=== PATIENT | male | born 1945 | race Caucasian/White ===

== ENCOUNTER → 2018-10-15 14:56 | Outpatient (CLI) | payer OTHER, SELFPAY ==
--- NOTE | 2018-10-15 14:58 | DI.US.S_ITS ---
PROCEDURE: US PERIPH VENOUS LOW EXTREM LT INDICATIONS: CALF EDEMA TECHNIQUE: Real-time imaging, as well as color and pulse Doppler interrogation, were performed of the lower extremity deep veins from the inguinal ligament to the popliteal fossa. COMPARISON: None. FINDINGS: The common femoral, femoral and popliteal veins are normally compressible, and free of intraluminal thrombus. Color and pulse Doppler demonstrate normal phasic intraluminal flow. There is normal augmentation response to distal compression maneuver. IMPRESSION: No deep venous thrombosis identified within the left lower extremity. Dictated by: Jay TRACY Interpreted: Tyra Tsai MD on 10/15/2018 at 16:04 Approved by: Tyra Tsai M.D. on 10/15/2018 at 16:47
== END ==
PROVIDERS: PCP Family Medicine; Visit Provider Family Medicine
DX: R60.0 Localized edema (principal)
CPT/HCPCS: 93971

== ENCOUNTER → 2019-01-01 12:41 | Outpatient (CLI) | payer OTHER, SELFPAY ==
--- NOTE | 2019-01-01 | DI.RAD.S_ITS ---
PROCEDURE: XR ANKLE LT MIN 3V INDICATIONS: left ankle pain TECHNIQUE: 3 views of the ankle were acquired. COMPARISON: None. FINDINGS: Bones: No fractures or dislocations. Ankle mortise is normally aligned. No suspicious bony lesions. There is a large plantar fascial insertion spur and also a moderate-sized Achilles tendon insertion spur at the posterior calcaneus Soft tissues: No tibiotalar joint effusion. Achilles tendon appears normal. IMPRESSION: No trauma found. Unusually large plantar fascia insertion spur and moderate size Achilles tendon spurring at the posterior calcaneus. Dictated by: Gordo Gambino M.D. on 01/01/2019 at 14:30 Approved by: Gordo Gambino M.D. on 01/01/2019 at 14:31
== END ==
PROVIDERS: PCP Family Medicine; Visit Provider Podiatrist
DX: M25.572 Pain in left ankle and joints of left foot (principal); M77.32 Calcaneal spur, left foot
CPT/HCPCS: 73610

== ENCOUNTER → 2019-01-10 17:15 | Outpatient (CLI) | payer OTHER, SELFPAY ==
--- NOTE | 2019-01-10 17:19 | DI.MRI.S_ITS ---
PROCEDURE: MR ANKLE LT WO CON INDICATIONS: STRAIN OF LEFT ACHILLES TENDON,INITIAL ENCOUNTER TECHNIQUE: Noncontrast sagittal T1 spin echo and T2 fast spin echo with fat saturation, axial proton density fast spin echo and T2 fast spin echo with fat saturation, coronal T1 spin echo and T2 fast spin echo with fat saturation through the ankle/hindfoot. COMPARISON: [facility], CR, XR ANKLE LT MIN 3V, 01/01/2019, 12:50. FINDINGS: Image quality: Diagnostic. Bones and joints: Prominent marrow edema is identified involving the plantar cuboid, lateral cuneiform, now cuneiform, and medial cuneiforms. There is also moderate adjacent marrow edema involving the 1st through 4th metatarsals. A nondisplaced stress fracture is evident involving the base of the 4th metatarsal. No displaced fractures or dislocations are identified. No suspicious osseous lesions are present. Plantar and Achilles spurs are present. The ankle mortise is well-maintained. There are no osteochondral defects appreciated involving the tibial plafond through the talar dome. However, there is prominent thinning of the hyaline articular cartilage within this joint. There may be a small ankle effusion. Medial structures: The deltoid and spring ligaments are intact. Slight heterogeneity involving these ligaments may be related to chronic sprains. The tibialis posterior tendon demonstrates minimal increased signal at the level of the navicular without significant change. The flexor hallucis longus and flexor digitorum longus tendons are intact and otherwise unremarkable. The posterior tibial nerve through the region of the tarsal tunnel is within normal limits. Lateral structures: The anterior and posterior distal tibiofibular ligaments are moderately thickened, but intact. A similar appearance is noted involving the anterior talar fibular ligament. The calcaneofibular ligament and the posterior talofibular ligament are intact. No full thickness lateral ankle ligament tears are appreciated. There is moderate thickening and increased signal involving the peroneus longus and peroneus brevis tendons with corresponding increased signal and irregularity. Moderate grade partial-thickness tearing involving the peroneus brevis tendon along the posterior margin of the lateral malleolus is present. Fluid is contained within their corresponding tendon sheaths. Fluid is contained within the sinus tarsi. Anterior structures: The tibialis anterior, extensor hallucis longus, and extensor digitorum longus tendons appear intact. Posterior and plantar structures: There is an irregular interstitial/delaminating high-grade partial-thickness tear of the Achilles tendon with corresponding severe tendinopathy. The medial band of the plantar fascia is thickened and mildly edematous. There may be postoperative change is present. Other: Extensive soft tissue edema about the midfoot and hindfoot is present, including the intrinsic muscles of the midfoot. IMPRESSION: 1. High grade interstitial/delaminating partial-thickness tearing of the Achilles tendon with corresponding severe tendinopathy. 2. Moderate peroneus brevis and peroneus longus tendinopathy. There is partial-thickness tearing of the peroneus brevis tendon. 3. Mild distal tibialis posterior tendinopathy. 4. Scarring of the lateral ankle ligaments. No complete tears. 5. Plantar fascial thickening. Please correlate clinically to exclude plantar fasciitis. 6. Stress fracture involving the base of the 4th metatarsal. Additional areas of marrow edema involving the midfoot bones may represent stress reaction, degenerative change, or bone contusion. There are no displaced fractures. 7. Extensive soft tissue edema about the midfoot and hindfoot. Dictated by: Camilo Driscoll M.D. on 01/13/2019 at 14:06 Approved by: Camilo Driscoll M.D. on 01/13/2019 at 14:14
== END ==
PROVIDERS: PCP Family Medicine; Visit Provider Podiatrist
DX: S86.012A Strain of left Achilles tendon, initial encounter (principal); M84.375A Stress fracture, left foot, initial encounter for fracture
CPT/HCPCS: 73721

== ENCOUNTER → 2019-11-22 15:03 | Outpatient (CLI) | payer MEDICARE, SELFPAY ==
[2019-11-23 08:15] LABS: COVID19 Sendout Not Detected (Not Detect)
== END ==
PROVIDERS: PCP Family Medicine; Visit Provider Nurse Practitioner
DX: Z01.812 Encounter for preprocedural laboratory examination (principal)
CPT/HCPCS: 87635

== ENCOUNTER 2019-11-25 07:28 | Day surgery (SDC) | payer MEDICARE, SELFPAY ==
[2019-11-25] MEDS: PROPARACAINE 0.5% OPHTH SOL 2 DROPS EYE-OP (08:05)
[2019-11-25 08:07] VITALS: BP 129/73; PULSE 70; RESP 17; TEMP 36.2; O2SAT 99; BMI 30.9
[2019-11-25] MEDS: CATARACT EYE COMPOUND (10 DROPS/SYRINGE) 3 DROPS EYE-OP (08:10)
--- NOTE | 2019-11-25 09:06 | PM.PREOP ---
Pre-operative Note Interval Note History & Physical reviewed/Exam performed by Physician: Yes Changes to H&P: No
--- NOTE | 2019-11-25 09:06 | PM.OP.1 ---
Operative Date/Time/Diagnoses Pre-op diagnosis: Nuclear Cataract Left eye Post-op diagnosis: same Procedure & Clinicians Same procedure as scheduled: Yes Surgeon: Jhonny Márquez Anesthesia Type: MAC +/- and Sedation Operative Notes Procedure in detail: Patient brought to the operating suite. Tetracaine drops placed in the left eye. Patient was prepped and draped in sterile manner. Wire lid speculum was placed in the eye. Betadine drops were placed on the eye. This was irrigated. Lidocaine jelly was placed on the eye. A paracentesis port was created with a side-port blade. 0.1 mL 1% preservative free lidocaine was injected into the anterior chamber. The anterior chamber was deepened with viscoelastic. 2.6 mm keratome was used to create a temporal clear corneal incision. Cystotome and Utrata forceps were used to create continuous tear capsulorrhexis. Balanced salt solution was used to hydro dissect the nucleus. The phacoemulsification handpiece was inserted and the nucleus was removed using the stop and chop technique. The lens was very dense. The irrigation aspiration handpiece was inserted and the remaining cortex was removed. Anterior chamber was deepened with viscoelastic. An Contreras ZCB00 intraocular lens with a power of 22.0 was injected into the capsular bag. Irrigation aspiration handpiece was inserted and the remaining viscoelastic was removed. Incision was hydrated with balanced salt solution and found to be leak free with pressure with Weck-Vivian sponges. 0.1 mL Vigamox injected anterior chamber. 0.3 mL Kenalog 10 mg was injected subconjunctivally. Lid speculum was removed. The patient left the operating room in excellent condition. Complications: none Post-operative Condition: stable Disposition: same day surgery
[2019-11-25] MEDS: TRIAMCINOLONE 50 MG/5 ML VIAL INJ (09:28)
[2019-11-25] MEDS: PHENYLEPHRINE/LIDOCAINE VIAL (OR) 0.2 ML EYE-OP (09:28)
[2019-11-25] MEDS: MOXIFLOXACIN INJ 5 MG/ML VIAL EYE-OP (09:28)
[2019-11-25] MEDS: BALANCED SALT IRRIG SOLN NO.2 500 ML, EPINEPHrine 1 MG IRR (09:29)
[2019-11-25] MEDS: CHONDROIDTIN/SOD HYALURONATE 1.05 ML SYRINGE INTRAOCULA (09:29)
[2019-11-25] MEDS: TETRACAINE 0.5% OPHTH DROPS 4 ML 2 DROPS EYE-OP (09:29)
[2019-11-25] MEDS: LIDOCAINE JELLY 2% 5 ML 1 APPLIC TOP (09:29)
[2019-11-25 09:40] VITALS: BP 108/60; PULSE 68; RESP 15; TEMP 35.9; O2SAT 98
== END 2019-11-25 09:52 | disposition home or self-care (01) ==
PROVIDERS: PCP Family Medicine; Referring Provider Ophthalmology; Visit Provider Ophthalmology
PROC: (CPT 66984; principal; 2019-11-25 09:15)
DX: H25.12 Age-related nuclear cataract, left eye (principal); E11.9 Type 2 diabetes mellitus without complications; Z79.4 Long term (current) use of insulin
CPT/HCPCS: 66984; J0171; J2250; J3301

== ENCOUNTER → 2022-01-09 12:57 | Outpatient (CLI) | payer MEDICARE, SELFPAY | PROVIDERS: Family Provider Family Medicine; PCP Family Medicine; Referring Provider Podiatrist; Visit Provider Family Medicine | DX: E11.621 Type 2 diabetes mellitus with foot ulcer (principal); L97.514 Non-pressure chronic ulcer of other part of right foot with necrosis of bone; M86.171 Other acute osteomyelitis, right ankle and foot; E11.40 Type 2 diabetes mellitus with diabetic neuropathy, unspecified; Z79.2 Long term (current) use of antibiotics; L08.9 Local infection of the skin and subcutaneous tissue, unspecified | CPT/HCPCS: 11044; 36415; 80053; 83036; 85025; 85651; 86140; 87070; 87075; 87077; 87186; 87205; 93922; 99204; 99213 ==

== ENCOUNTER → 2022-01-09 15:07 | Outpatient (CLI) | payer MEDICARE, SELFPAY ==
[2022-01-09 16:04] LABS: Add Manual Diff / Slide Review NO; Basophils Absolute Auto 100 /uL (0-100); Basophils Percent Auto 0.7 % (0-2); Eosinophils Absolute Auto 100 /uL (0-450); Hematocrit 39.9 % (41-53); Hemoglobin 13.7 g/dL (13.5-17.5); Lymphocytes Absolute Auto 1800 /uL (1100-4500); Lymphocytes Percent Auto 26.2 % (25-40); Mean Corpuscular HGB Conc 34.3 % (30-36); Mean Corpuscular Volume 84.6 fL (80-100); Monocytes Absolute Auto 500 /uL (0-900); Monocytes Percent Auto 7.4 % (3-14); Neutrophils Absolute Auto 4500 /uL (1500-7000); Neutrophils Percent Auto 63.7 % (50-75); Platelet Count 420 X10^3/uL (150-400); Red Blood Cell Count 4.71 X10^6/uL (4.5-5.9); Red Cell Distribution Width 14.2 % (11.6-14.8)
[2022-01-09 16:29] LABS: Alanine Aminotransferase 31 IU/L (<50); Albumin 4.1 g/dL (3.5-5.0); Albumin Globulin Ratio 1.2 (1.0-2.8); Alkaline Phosphatase 67 U/L (38-126); Aspartate Aminotransferase 41 IU/L (17-59); BUN Creatinine Ratio 24.1 (6-22); Bilirubin Total 0.7 mg/dL (0.2-1.3); Blood Urea Nitrogen 20 mg/dL (9-20); C-Reactive Protein Quant < 0.5 mg/dL (<1.0); Calcium 9.4 mg/dL (8.4-10.2); Carbon Dioxide 25 mmol/L (22-32); Chloride 103 mmol/L (98-107); Estimated Glomerular Filt Rate > 60 mL/min (>60); Globulin 3.3 g/dL (1.7-4.1); Glucose 111 mg/dL (80-110); HEMOLYSIS < 15 (0-50); Potassium 4.8 mmol/L (3.4-5.1); Sodium 137 mmol/L (137-145); Total Protein 7.4 g/dL (6.3-8.2)
[2022-01-09 16:39] LABS: Erythrocyte Sedimentation Rate 13 MM/HR (0-15)
[2022-01-09 17:12] LABS: Hemoglobin A1C% w Est Avg Glu 9.2 % (4.0-6.0)
== END ==
PROVIDERS: Family Provider Family Medicine; PCP Internal Medicine; Referring Provider Family Medicine; Visit Provider Family Medicine
DX: E11.9 Type 2 diabetes mellitus without complications (principal); L08.9 Local infection of the skin and subcutaneous tissue, unspecified
CPT/HCPCS: 36415; 80053; 83036; 85025; 85651; 86140

== ENCOUNTER → 2022-01-10 15:27 | Outpatient (CLI) | payer MEDICARE, SELFPAY | PROVIDERS: Family Provider Family Medicine; PCP Internal Medicine; Referring Provider Podiatrist; Visit Provider Family Medicine | DX: E11.621 Type 2 diabetes mellitus with foot ulcer (principal); L97.514 Non-pressure chronic ulcer of other part of right foot with necrosis of bone; R60.0 Localized edema; L53.9 Erythematous condition, unspecified | CPT/HCPCS: 99213 ==

== ENCOUNTER → 2022-01-16 13:54 | Outpatient (CLI) | payer MEDICARE, SELFPAY | PROVIDERS: Family Provider Family Medicine; PCP Internal Medicine; Referring Provider Internal Medicine; Visit Provider Family Medicine | DX: E11.621 Type 2 diabetes mellitus with foot ulcer (principal); L97.514 Non-pressure chronic ulcer of other part of right foot with necrosis of bone; R60.0 Localized edema; L53.9 Erythematous condition, unspecified | CPT/HCPCS: 99212 ==

== ENCOUNTER → 2022-01-25 15:14 | Outpatient (CLI) | payer MEDICARE, SELFPAY | PROVIDERS: Family Provider Family Medicine; PCP Internal Medicine; Referring Provider Internal Medicine; Visit Provider Family Medicine | DX: L08.9 Local infection of the skin and subcutaneous tissue, unspecified (principal); E11.621 Type 2 diabetes mellitus with foot ulcer; L97.516 Non-pressure chronic ulcer of other part of right foot with bone involvement without evidence of necrosis; L97.522 Non-pressure chronic ulcer of other part of left foot with fat layer exposed; M86.171 Other acute osteomyelitis, right ankle and foot; M86.172 Other acute osteomyelitis, left ankle and foot; E11.40 Type 2 diabetes mellitus with diabetic neuropathy, unspecified; R60.0 Localized edema; L53.9 Erythematous condition, unspecified; Z79.2 Long term (current) use of antibiotics | CPT/HCPCS: 11042; 36415; 80053; 85025; 85651; 86140; 99214 ==

== ENCOUNTER → 2022-01-25 16:11 | Outpatient (CLI) | payer MEDICARE, SELFPAY ==
[2022-01-25 17:40] LABS: Add Manual Diff / Slide Review NO; Basophils Absolute Auto 0 /uL (0-100); Basophils Percent Auto 0.4 % (0-2); Eosinophils Absolute Auto 200 /uL (0-450); Hematocrit 37.9 % (41-53); Hemoglobin 12.9 g/dL (13.5-17.5); Lymphocytes Absolute Auto 1400 /uL (1100-4500); Lymphocytes Percent Auto 17.6 % (25-40); Mean Corpuscular Hemoglobin 29.1 PG (26-34); Mean Corpuscular Volume 85.3 fL (80-100); Monocytes Absolute Auto 600 /uL (0-900); Monocytes Percent Auto 7.1 % (3-14); Neutrophils Absolute Auto 5900 /uL (1500-7000); Neutrophils Percent Auto 72.9 % (50-75); Platelet Count 284 X10^3/uL (150-400); Red Blood Cell Count 4.44 X10^6/uL (4.5-5.9); Red Cell Distribution Width 14.7 % (11.6-14.8); White Blood Cell Count 8.1 X10^3/uL (4.5-11.0)
[2022-01-25 18:04] LABS: Alanine Aminotransferase 24 IU/L (<50); Albumin Globulin Ratio 1.3 (1.0-2.8); Alkaline Phosphatase 58 U/L (38-126); Aspartate Aminotransferase 40 IU/L (17-59); BUN Creatinine Ratio 25.7 (6-22); Bilirubin Total 1.1 mg/dL (0.2-1.3); Blood Urea Nitrogen 18 mg/dL (9-20); C-Reactive Protein Quant < 0.5 mg/dL (<1.0); Calcium 9.2 mg/dL (8.4-10.2); Carbon Dioxide 25 mmol/L (22-32); Chloride 104 mmol/L (98-107); Estimated Glomerular Filt Rate > 60 mL/min (>60); Glucose 187 mg/dL (80-110); HEMOLYSIS < 15 (0-50); Potassium 4.3 mmol/L (3.4-5.1); Sodium 138 mmol/L (137-145)
[2022-01-25 20:24] LABS: Erythrocyte Sedimentation Rate 16 MM/HR (0-15)
== END ==
PROVIDERS: Family Provider Family Medicine; PCP Internal Medicine; Referring Provider Family Medicine; Visit Provider Family Medicine
DX: L08.9 Local infection of the skin and subcutaneous tissue, unspecified (principal); E11.621 Type 2 diabetes mellitus with foot ulcer
CPT/HCPCS: 36415; 80053; 85025; 85651; 86140

== ENCOUNTER → 2022-02-08 10:43 | Outpatient (CLI) | payer MEDICARE, SELFPAY | PROVIDERS: Family Provider Family Medicine; PCP Internal Medicine; Referring Provider Podiatrist; Visit Provider Family Medicine | DX: E11.621 Type 2 diabetes mellitus with foot ulcer (principal); L97.516 Non-pressure chronic ulcer of other part of right foot with bone involvement without evidence of necrosis; L97.522 Non-pressure chronic ulcer of other part of left foot with fat layer exposed; M86.672 Other chronic osteomyelitis, left ankle and foot; E11.40 Type 2 diabetes mellitus with diabetic neuropathy, unspecified; Z79.2 Long term (current) use of antibiotics | CPT/HCPCS: 11042; 99213; 99214 ==

== ENCOUNTER → 2022-03-02 13:03 | Outpatient (CLI) | payer MEDICARE, SELFPAY | PROVIDERS: Family Provider Family Medicine; PCP Internal Medicine; Referring Provider Internal Medicine; Visit Provider Family Medicine | DX: E11.621 Type 2 diabetes mellitus with foot ulcer (principal); L97.516 Non-pressure chronic ulcer of other part of right foot with bone involvement without evidence of necrosis; E11.40 Type 2 diabetes mellitus with diabetic neuropathy, unspecified | CPT/HCPCS: 11042 ==

== ENCOUNTER → 2022-03-23 12:53 | Outpatient (CLI) | payer MEDICARE, SELFPAY | PROVIDERS: Family Provider Family Medicine; PCP Internal Medicine; Referring Provider Podiatrist; Visit Provider Family Medicine | DX: E11.621 Type 2 diabetes mellitus with foot ulcer (principal); L97.512 Non-pressure chronic ulcer of other part of right foot with fat layer exposed; L08.9 Local infection of the skin and subcutaneous tissue, unspecified; E11.40 Type 2 diabetes mellitus with diabetic neuropathy, unspecified | CPT/HCPCS: 11042; 87070; 87075; 87077; 87147; 87186; 87205; 99213; 99214 ==

== ENCOUNTER → 2022-03-30 15:20 | Outpatient (CLI) | payer MEDICARE, SELFPAY | PROVIDERS: Family Provider Family Medicine; PCP Internal Medicine; Referring Provider Internal Medicine; Visit Provider Surgery | DX: Z86.31 Personal history of diabetic foot ulcer (principal); E11.40 Type 2 diabetes mellitus with diabetic neuropathy, unspecified | CPT/HCPCS: 99213 ==

== ENCOUNTER → 2022-08-31 14:37 | Outpatient (CLI) | payer MEDICARE, SELFPAY ==
--- NOTE | 2022-08-31 | OV.WND_ITS ---
Progress Note Details Patient Name: Jhonny Riggs Patient Number: [id number] Clinician: Cynthia Sol RN Patient Date of : 1945 Physician / Warp Knit Operator: Raman Fountain Patient SUBJECTIVE Chief Complaint This information was obtained from the patient I pulled off my right second toenail on 08/14/22. Allergies No Known Allergies HPI This information was obtained from the patient The following HPI elements were documented for the patient's wound: Location: R 2nd toe Duration: 08/14/22 Context: DFU Associated Signs and Symptoms: none The patient is a 76-year-old male with poorly controlled Type 2 diabetes who was referred by Dr. Cornell for readmission to the wound center for evaluation and treatment of a diabetic ulcer of the right 2nd toe. The patient reports that he pulled his toenail off about 2 weeks ago and was left with an open wound. He subsequently developed redness and swelling of the right 2nd toe. He has been treated over 1 week with Bactrim DS 1 p.o. b.i.d. and reports only slight improvement. He denies having any pain or discomfort nor has he had any fever or chills. The patient reports a good appetite. He is not routine only measuring his blood sugars. The patient reports that his last hemoglobin A1c was 11.1. He does not use diabetic footwear and has been ambulating with sandals. Past history is remarkable for diabetic ulcers involving the left 3rd toe and right hallux. ABIs done today were 0.93 on the left, 1.08 on the right. 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 Medical History This information was obtained from the patient Patient has a medical history of: Diabetes Poliomyelitis (left side) Hypertension Surgical History This information was obtained from the patient, chart Patient has a surgical history of: knee replacement Arthroscopy Shoulder R side Review of Systems (ROS) This information was obtained from the patient Complaints and Symptoms Patient complains of: Co-Morbid Conditions: Diabetes Prior Wound History: Drainage Patient denies complaints or symptoms related to: Cardiovascular (Central): Chest Pain, Dyspnea on Exertion Constitutional Symptoms (General Health): Chills, Fever, Loss of Appetite Prior Wound History: Bleeding, Erythema, Malodor, Pain Respiratory: Cough, Shortness of Breath, Wheezing General Notes: Managed by PCP, patient believes he is up to date. Additional Information Does patient have a history of Cancer? Yes? Complete all questions.: No Medications Bactrim DS - oral 800 mg-160 mg 1 tablet twice daily for 10 days for toe infection rx'd by PCP metformin - oral 500 mg 3/2 tablet twice daily CoQ-10 - oral 30 mg 1 capsule once daily Adult Low Dose Aspirin - oral 81 mg 1 tablet,delayed release (DR/EC) once daily Lantus Solostar U-100 Insulin - subcutaneous 100 unit/mL (3 mL) 40 insulin pen levofloxacin - oral 750 mg tablet once daily OBJECTIVE Wound Assessment(s) Wound #3 Right Toe - Second is an acute Shrestha Grade 2 Diabetic Ulcer and has received a status of Not Healed. Initial wound encounter measurements are 0.2cm length x 0.3cm width x 0.5cm depth, with an area of 0.06 sq cm and a volume of 0.03 cubic cm. Bone and adipose are exposed. No tunneling has been noted. No sinus tract has been noted. No undermining has been noted. There is a moderate amount of serosanguineous drainage noted which has no odor. The patient reports a wound pain of level 0/10. The wound margin is attached. Wound bed has No epithelialization, No eschar, Yes slough, No granulation. The periwound skin exhibited: Edema, Moist, Maceration, Erythema. The temperature of the periwound skin is Warm. Local Pulse is Palpable. Vitals Height/Length: 73 in (185.42 cm), Weight: 230.3 lbs (104.68 kgs), BMI: 30.4, Temperature: 97.5 ?F (36.39 ?C), Pulse: 68 bpm, Respiratory Rate: 16 breaths/min, Blood Pressure: 157/75 mmHg, Capillary Blood Glucose: 65 mg/dl, Pulse Oximetry: 97 %. Vital Signs Notes: Ensure given to patient in clinic. Rechecked glucose 20 minutes later: 74. Patient to eat lunch when he leaves here. Physical Exam Constitutional Vital signs reviewed and noted. Eyes: Conjunctiva without icterus. Ears, Nose, Mouth, and Throat: External inspection of ears and nose appear normal. Respiratory: Even respirations without use of accessory muscles. No intercoastal retractions noted. Even and non labored respiration. Integumentary (Hair, Skin) See wound assessment. Neurological: decreased lower extremity sensation. Psychiatric: Orientation to time, place and person: Normal affect with normal thought pattern. Lower Extremity Assessment Vascular Assessment: Left Extremity Pulses: Dorsalis Pedis: Palpable Right Extremity Pulses: Dorsalis Pedis: Palpable Left Extremity colors, hair growth, and conditions: Extremity Color: WNL Hair Growth on Extremity: No Temperature of Extremity: Warm Capillary Refill: < 3 seconds Erythema: No Dependent Rubor: No Hyperpigmentation: No Lipodermatosclerosis: No Right Extremity colors, hair growth, and conditions: Extremity Color: WNL Hair Growth on Extremity: No Temperature of Extremity: Warm Capillary Refill: < 3 seconds Erythema: Yes Dependent Rubor: No Hyperpigmentation: No Lipodermatosclerosis: No Additional Information The patient's potential to heal is: fair. 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 without evidence of necrosis (Encounter Diagnosis) E11.40 - Type 2 diabetes mellitus with diabetic neuropathy, unspecified General Notes: diabetic ulcer dorsum distal right 2nd toe extending down to the distal phalanx with active infection the following factors have been identified that may affect wound healing: Devitalized tissue Bioburden Infection Diabetes Neuropathy Goals: remove devitalized tissue Remove and prevent biofilm Treat infection Pressure offloading Manage comorbidities Plan: debridement, start dressing changes with Iodosorb, diabetic footwear, cultures obtained today, x-rays right foot ordered, laboratory evaluation CBC, complete metabolic panel, ESR, sed rate. Start Levaquin 750 mg p.o. q.day. PROCEDURES Wound #3 Wound #3 (Diabetic Ulcer) is located on the right toe - second. A skin/subcutaneous tissue level surgical debridement with a total area debrided of 0.09 sq cm was performed by Raman Fountain MD. Subcutaneous was removed along with devitalized tissue: biofilm, exudate, and slough. The following instrument(s) were used: curette. No anesthetic was required due to loss of sensation. A time out was conducted prior to the start of the procedure. A minimal amount of bleeding was controlled with pressure. The procedure was tolerated well with a loss of sensation throughout and a loss of sensation following the procedure. Post Debridement Measurements: 0.3cm length x 0.3cm width x 0.5cm depth; with an area of 0.09 sq cm and a volume of 0.045 cubic cm; Wound #3 (Diabetic Ulcer) is located on the right toe - second. A Non-Invasive Vascular Testing procedure was performed by Raman Fountain MD. General Notes: RONALD performed in clinic. RLE: 1.08, LLE 0.93. Additional Information Muscle fascia or bone removed and sent to pathology?: No PLAN Wound Orders: Wound #3 Right Toe - Second Hygiene May shower with wound protected, using a cast protector or plastic bag and tape Cleanser Cleanse Wound with normal saline Topical Treatments Antibiotic/Antimicrobial Ointment/Cream - Iodosorb paste filling wound. Dressings Cover and secure with - Telfa pad secured with tape. Change Dressing - Every other day. Off-Loading Keep weight off Use/Wear when walking - Sandal to avoid pressure against top of toe. Physician Review: Reviewed and evaluated labs. Discussed the Plan of Care @ bedside with - The patient Reviewed hospital records. I, as the physician, have reviewed the orders scribed by the center RN's and agree. Additional Orders: Other Instructions: - Please coal picker and start taking the new antibiotic prescription for levofloxacin. Stop taking the Bactrim DS (sulfamethoxazole-trimethoprim). Follow-Up Appointments Return Appointment - One week. Other information: If you develop fever, chills, increased pain, drainage, redness or swelling please call our office. If after hours, respond to the ER. Should you experience any significant changes in your wound(s) or have any questions regarding your home care instructions please contact the wound center @ [phone]. If after hours, contact your primary care physician or go to the hospital emergency room. Scribing Attestation I attest, as the nurse, that I scribed these orders for the physician. Cardiovascular: Ankle Brachial Index (RONALD) - Performed in clinic. Laboratory: Culture and Sensitivity - Swab sample taken., Other Labs - CBC, CMP, ESR, CRP, A1C. Please have labs drawn today. Radiology: X-ray, foot - Right foot, 2 view. Please get X-ray done today. Medications prescribed: levofloxacin - oral 750 mg tablet once daily starting 08/31/2022 Plan of Care: 01. ENSURE/ESTABLISH OPTIMAL BLOOD FLOW : - Complete lower extremity assessment - Perform non-invasive vascular testing (i.e. RONALD) and document findings. Consider repeating when wound healing <40% after 30 days of wound care. 02. ASSESS FOR/TREAT INFECTION : - Evaluate for signs and symptoms of infection and document findings. - Obtain culture and sensitivity (CandS) or tissue culture when infection is suspected. (NOTE:) Consider repeating when wound healing <40% after 30 days of wound care. 03. DEBRIDE WEEKLY OR MORE OFTEN PRN : - Evaluate patient in center weekly to assess wound bed and margins for need for debridement. - Debridement by any method to remove devitalized/necrotic tissue to promote healing and prevent further complications. Goal is to stimulate and/or maintain acute phase of wound healing by reducing bacterial burden and devitalized/non-viable tissue. 04. OPTIMIZE GLUCOSE CONTROL and NUTRITION : - Order/review pertinent labs to evaluate renal function, glucose control, and nutritional status. - Complete a nutrition risk assessment. 05. OFFLOADING PLAN : - Evaluate plan for offloading - Advise patient to offload the foot ulcer. (i.e. half shoe, surgical shoe, insert, custom shoe, felt and foam, cam walker, multipodus splint, total contact cast, bi-valve cast, posterior splint). - Provide education materials/discuss offloading strategies as appropriate. - Assess tolerance and compliance of offloading. 06. OPTIMIZE HOST FACTORS: - Assess and review patient history for wound etiology, co-morbid conditions, medication regime, and smoking history. - Assess lifestyle factors such as smoking, alcohol/drug abuse, eating habits/malnutrition and activity level. 07. DRESSING SELECTION : - Evaluate for dressing-related factors, such as availability, wear time, adaptability and use to better optimize wound healing and patient compliance. - Choose topical treatments and/or dressing based on wound type and appearance, periwound skin condition, wound size and depth, anatomic location, volume of exudate, edema in the lower extremities, and risk or presence of infection. 08. ADVANCED MODALITIES : - Evaluate for appropriateness of Hyperbaric Oxygen Therapy. - Set treatment goals according to patient and/or caregiver???s ability/ compliance. - Re-evaluate plan of care if no evidence of healing (40% in 4 weeks). 09. FALL PREVENTION : - Complete fall assessment. - Reviewed, not applicable 10. PAIN MANAGEMENT : - Reviewed, not applicable - Insensate. 11. MEASURABLE GOALS for Wound Healing and/or Hyperbaric Oxygen Therapy : - Decrease Inflammation - Decrease Wound Dimensions - Implement protocols to promote healing and impede further injury - To improve potential to heal 12. DURATION/FREQUENCY of Wound Care Visits : - 1x weekly for 30 days Electronic Signature(s) Signed By: Date: Raman Fountain MD 08/31/2022 16:18:04 (PT) Entered By: Raman Fountain MD on 08/31/2022 16:17:35 (PT)
== END ==
PROVIDERS: Family Provider Family Medicine; PCP Internal Medicine; Referring Provider Student in an Organized Health Care Education/Training Program; Visit Provider Surgery
DX: E11.621 Type 2 diabetes mellitus with foot ulcer (principal); L08.9 Local infection of the skin and subcutaneous tissue, unspecified; L97.516 Non-pressure chronic ulcer of other part of right foot with bone involvement without evidence of necrosis; E11.40 Type 2 diabetes mellitus with diabetic neuropathy, unspecified
CPT/HCPCS: 11042; 36415; 73630; 80053; 83036; 85025; 85651; 86140; 87070; 87077; 87147; 87186; 87205; 99214

== ENCOUNTER → 2022-08-31 15:55 | Outpatient (CLI) | payer MEDICARE, SELFPAY ==
--- NOTE | 2022-08-31 15:57 | DI.RAD.S_ITS ---
PROCEDURE: XR FOOT RT MIN 3V INDICATIONS: diabetic ulcer on right second toe, eval for osteomyelitis TECHNIQUE: 3 views of the foot were acquired. [facility] RIGHT, 01/02/2022, 15:14. FINDINGS: Bones: Interval development of loss of the distal tuft of the great toe, with a a relatively sclerotic margin. This may potentially represent treated osteomyelitis or be postsurgical. The right 2nd toe middle phalanx is diffusely demineralized, raising the question of osteomyelitis of the middle phalanx of the 2nd toe. Again noted is extensive heterotopic bone formation at the level of the 1st metatarsal bone. Soft tissues: No tibiotalar joint effusion. Achilles tendon appears normal. IMPRESSION: Question osteomyelitis involving the middle phalanx of the 2nd toe. Comment: Recommend confirmation utilizing foot MRI with and without contrast. Dictated by: José Miguel Mckeon M.D. on 08/31/2022 at 17:22 Approved by: José Miguel Mckeon M.D. on 08/31/2022 at 17:25
[2022-08-31 16:42] LABS: Add Manual Diff / Slide Review NO; Basophils Absolute Auto 0 /uL (0-100); Basophils Percent Auto 0.6 % (0-2); Eosinophils Absolute Auto 100 /uL (0-450); Eosinophils Percent Auto 1.4 % (2-4); Hematocrit 43.4 % (41-53); Hemoglobin 14.8 g/dL (13.5-17.5); Lymphocytes Absolute Auto 2400 /uL (1100-4500); Lymphocytes Percent Auto 28.4 % (25-40); Mean Corpuscular HGB Conc 34.2 % (30-36); Mean Corpuscular Hemoglobin 29.2 PG (26-34); Mean Corpuscular Volume 85.5 fL (80-100); Monocytes Absolute Auto 700 /uL (0-900); Monocytes Percent Auto 7.9 % (3-14); Neutrophils Absolute Auto 5200 /uL (1500-7000); Neutrophils Percent Auto 61.7 % (50-75); Platelet Count 416 X10^3/uL (150-400); Red Blood Cell Count 5.08 X10^6/uL (4.5-5.9); Red Cell Distribution Width 14.2 % (11.6-14.8); White Blood Cell Count 8.4 X10^3/uL (4.5-11.0)
[2022-08-31 16:46] LABS: Alanine Aminotransferase 40 IU/L (<50); Albumin 4.3 g/dL (3.5-5.0); Albumin Globulin Ratio 1.3 (1.0-2.8); Alkaline Phosphatase 67 U/L (38-126); Aspartate Aminotransferase 61 IU/L (17-59); BUN Creatinine Ratio 21.2 (6-22); Bilirubin Total 1.2 mg/dL (0.2-1.3); Blood Urea Nitrogen 14 mg/dL (9-20); C-Reactive Protein Quant < 0.5 mg/dL (<1.0); Calcium 10.2 mg/dL (8.4-10.2); Carbon Dioxide 23 mmol/L (22-32); Chloride 103 mmol/L (98-107); Estimated Glomerular Filt Rate > 60 mL/min (>60); Globulin 3.4 g/dL (1.7-4.1); Glucose 90 mg/dL (80-110); HEMOLYSIS < 15 (0-50); Potassium 4.5 mmol/L (3.4-5.1); Sodium 138 mmol/L (137-145); Total Protein 7.7 g/dL (6.3-8.2)
[2022-08-31 17:25] LABS: Erythrocyte Sedimentation Rate 14 MM/HR (0-15)
[2022-09-02 06:08] LABS: Labcorp Hemoglobin (Hb) A1c 10.5 % (4.8-5.6)
== END ==
PROVIDERS: Family Provider Family Medicine; PCP Internal Medicine; Referring Provider Surgery; Visit Provider Surgery
DX: E11.621 Type 2 diabetes mellitus with foot ulcer (principal); L08.9 Local infection of the skin and subcutaneous tissue, unspecified
CPT/HCPCS: 36415; 73630; 80053; 83036; 85025; 85651; 86140

== ENCOUNTER → 2022-09-07 14:04 | Outpatient (CLI) | payer MEDICARE, SELFPAY ==
--- NOTE | 2022-09-07 | OV.WND_ITS ---
Progress Note Details Patient Name: Jhonny Riggs Patient Number: [id number] Clinician: Cynthia Sol RN Patient Date of : 1945 Physician / [employer] Manager: Raman Fountain Patient SUBJECTIVE Chief Complaint This information was obtained from the patient, chart Right second toe diabetic ulcer. Allergies No Known Allergies HPI This information was obtained from the patient The following HPI elements were documented for the patient's wound: Location: R 2nd toe Duration: 08/14/22 Context: DFU Associated Signs and Symptoms: none The patient is a 76-year-old male with poorly controlled Type 2 diabetes who returns for followup of a diabetic ulcer of the right 2nd toe. The patient reports that he pulled his toenail off about 2 weeks ago and was left with an open wound. He subsequently developed redness and swelling of the right 2nd toe and was been treated over 1 week with Bactrim DS 1 p.o. b.i.d. and reports only slight improvement. Last week he was switched over to Levaquin is started on dressing changes with Bowden Sorb. He denies having any pain or discomfort nor has he had any fever or chills. The patient reports a good appetite. He reports that he is making a greater effort to control his blood sugars and has an appointment with his primary care physician soon. He does not use diabetic footwear and has been ambulating with sandals. Past history is remarkable for diabetic ulcers involving the left 3rd toe and right hallux. ABIs done today were 0.93 on the left, 1.08 on the right. Previous workup: 08/31/22: culture grew MRSA 08/31/22: X-ray right foot middle phalanx of right 2nd toe 08/31/22: WBC 8.4, hemoglobin 14.8, HCT 43.4, electrolytes normal, GFR greater than 60, hemoglobin A1c 10.5 01/25/22: CBC and CMP without significant abnormality, GFR greater than 60 Medical History This information was obtained from the patient Patient has a medical history of: Diabetes Poliomyelitis (left side) Hypertension Surgical History This information was obtained from the patient, chart Patient has a surgical history of: knee replacement Arthroscopy Shoulder R side Additional Information Does patient have a history of Cancer? Yes? Complete all questions.: No OBJECTIVE Wound Assessment(s) Wound #3 Right Toe - Second is an acute Shrestha Grade 2 Diabetic Ulcer and has received a status of Not Healed. Initial wound encounter measurements are 0.1cm length x 0.5cm width x 0.5cm depth, with an area of 0.05 sq cm and a volume of 0.025 cubic cm. Bone and adipose are exposed. No tunneling has been noted. No sinus tract has been noted. No undermining has been noted. There is a moderate amount of serosanguineous drainage noted which has no odor. The patient reports a wound pain of level 0/10. The wound margin is attached. Wound bed has No epithelialization, No eschar, Yes slough, No granulation. The periwound skin exhibited: Edema, Moist, Maceration, Erythema. The temperature of the periwound skin is Warm. Local Pulse is Palpable. Vitals Height/Length: 73 in (185.42 cm), Weight: 230.3 lbs (104.68 kgs), BMI: 30.4, Temperature: 98.2 ?F (36.78 ?C), Pulse: 96 bpm, Respiratory Rate: 18 breaths/min, Blood Pressure: 146/60 mmHg, Capillary Blood Glucose: 138 mg/dl, Pulse Oximetry: 97 %. Physical Exam Constitutional Vital signs reviewed and noted. Well developed, well nourished, and in no acute distress. Alert and oriented x3. Respiratory: Even respirations without use of accessory muscles. No intercoastal retractions noted. Even and non labored respiration. Integumentary (Hair, Skin) See wound assessment. Neurological: decreased lower extremity sensation. Psychiatric: Orientation to time, place and person: Normal affect with normal thought pattern. Additional Information The patient's potential to heal is: fair. 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 without evidence of necrosis (Encounter Diagnosis) E11.40 - Type 2 diabetes mellitus with diabetic neuropathy, unspecified General Notes: diabetic ulcer dorsum distal right 2nd toe extending down to the distal phalanx with active infection erythema improved the following factors have been identified that may affect wound healing: Devitalized tissue Bioburden Infection Diabetes Neuropathy Goals: remove devitalized tissue Remove and prevent biofilm Treat infection Pressure offloading Manage comorbidities Plan: debridement, switch to dressing changes with Hydrofera blue, order MRI right foot, switch to Doxycycline PROCEDURES Wound #3 Wound #3 (Diabetic Ulcer) is located on the right toe - second. A skin/subcutaneous tissue level surgical debridement with a total area debrided of 0.18 sq cm was performed by Raman Fountain MD. Subcutaneous was removed along with devitalized tissue: biofilm, exudate, and slough. The following instrument(s) were used: curette. No anesthetic was required due to loss of sensation. A time out was conducted prior to the start of the procedure. A moderate amount of bleeding was controlled with silver nitrate. The procedure was tolerated well with a loss of sensation throughout and a loss of sensation following the procedure. Post Debridement Measurements: 0.3cm length x 0.6cm width x 0.5cm depth; with an area of 0.18 sq cm and a volume of 0.09 cubic cm; Additional Information Muscle fascia or bone removed and sent to pathology?: No PLAN Wound Orders: Wound #3 Right Toe - Second Hygiene May shower with wound protected, using a cast protector or plastic bag and tape Cleanser Cleanse Wound with normal saline Dressings Primary dressing - Hydrofera blue classic foam, moistened with saline then wrung out. Cut to fill wound. Cover and secure with - Telfa pad secured with tape. Change Dressing - Every other day. Off-Loading Keep weight off Use/Wear when walking - Sandal to avoid pressure against top of toe. Physician Review: Reviewed and evaluated labs. Discussed the Plan of Care @ bedside with - The patient Reviewed hospital records. I, as the physician, have reviewed the orders scribed by the center RN's and agree. Additional Orders: Other Instructions: - Please stop taking levaquin and start doxycycline. Follow-Up Appointments Return Appointment - . Return for Nurse visit - Sunday. Other information: If you develop fever, chills, increased pain, drainage, redness or swelling please call our office. If after hours, respond to the ER. Should you experience any significant changes in your wound(s) or have any questions regarding your home care instructions please contact the wound center @ [phone]. If after hours, contact your primary care physician or go to the hospital emergency room. Scribing Attestation I attest, as the nurse, that I scribed these orders for the physician. Radiology: MRI, lower extremity with cont - Right foot. Please call to schedule MRI. Medications prescribed: doxycycline monohydrate - oral 100 mg tablet twice daily starting 09/07/2022 Plan of Care: 01. ENSURE/ESTABLISH OPTIMAL BLOOD FLOW : - Complete lower extremity assessment - Perform non-invasive vascular testing (i.e. RONALD) and document findings. Consider repeating when wound healing <40% after 30 days of wound care. 02. ASSESS FOR/TREAT INFECTION : - Evaluate for signs and symptoms of infection and document findings. - Obtain culture and sensitivity (CandS) or tissue culture when infection is suspected. (NOTE:) Consider repeating when wound healing <40% after 30 days of wound care. 03. DEBRIDE WEEKLY OR MORE OFTEN PRN : - Evaluate patient in center weekly to assess wound bed and margins for need for debridement. - Debridement by any method to remove devitalized/necrotic tissue to promote healing and prevent further complications. Goal is to stimulate and/or maintain acute phase of wound healing by reducing bacterial burden and devitalized/non-viable tissue. 04. OPTIMIZE GLUCOSE CONTROL and NUTRITION : - Order/review pertinent labs to evaluate renal function, glucose control, and nutritional status. - Complete a nutrition risk assessment. 05. OFFLOADING PLAN : - Evaluate plan for offloading - Advise patient to offload the foot ulcer. (i.e. half shoe, surgical shoe, insert, custom shoe, felt and foam, cam walker, multipodus splint, total contact cast, bi-valve cast, posterior splint). - Provide education materials/discuss offloading strategies as appropriate. - Assess tolerance and compliance of offloading. 06. OPTIMIZE HOST FACTORS: - Assess and review patient history for wound etiology, co-morbid conditions, medication regime, and smoking history. - Assess lifestyle factors such as smoking, alcohol/drug abuse, eating habits/malnutrition and activity level. 07. DRESSING SELECTION : - Evaluate for dressing-related factors, such as availability, wear time, adaptability and use to better optimize wound healing and patient compliance. - Choose topical treatments and/or dressing based on wound type and appearance, periwound skin condition, wound size and depth, anatomic location, volume of exudate, edema in the lower extremities, and risk or presence of infection. 08. ADVANCED MODALITIES : - Evaluate for appropriateness of Hyperbaric Oxygen Therapy. - Set treatment goals according to patient and/or caregiver???s ability/ compliance. - Re-evaluate plan of care if no evidence of healing (40% in 4 weeks). 09. FALL PREVENTION : - Complete fall assessment. - Reviewed, not applicable 10. PAIN MANAGEMENT : - Reviewed, not applicable - Insensate. 11. MEASURABLE GOALS for Wound Healing and/or Hyperbaric Oxygen Therapy : - Decrease Inflammation - Decrease Wound Dimensions - Implement protocols to promote healing and impede further injury - To improve potential to heal 12. DURATION/FREQUENCY of Wound Care Visits : - 1x weekly for 30 days Electronic Signature(s) Signed By: Date: Raman Fountain MD 09/07/2022 15:49:59 (PT) Entered By: Raman Fountain MD on 09/07/2022 15:49:19 (PT)
== END ==
PROVIDERS: Family Provider Family Medicine; PCP Internal Medicine; Referring Provider Internal Medicine; Visit Provider Surgery
DX: E11.621 Type 2 diabetes mellitus with foot ulcer (principal); L97.516 Non-pressure chronic ulcer of other part of right foot with bone involvement without evidence of necrosis; E11.40 Type 2 diabetes mellitus with diabetic neuropathy, unspecified; R60.0 Localized edema; L53.9 Erythematous condition, unspecified
CPT/HCPCS: 11042; 99213

== ENCOUNTER → 2022-09-10 14:14 | Outpatient (CLI) | payer MEDICARE, SELFPAY ==
--- NOTE | 2022-09-10 14:16 | DI.MRI.S_ITS ---
PROCEDURE: MR FOOT RT WO/W CON INDICATIONS: ulcer on right second toe, XR suspicious of osteomyelitis TECHNIQUE: Noncontrast coronal T1 spin echo and STIR, sagittal T1 spin echo with fat saturation and STIR, axial T1 spin echo and T2 fast spin echo with fat saturation. After the administration of contrast, axial/sagittal/coronal T1 spin echo with fat saturation through the right foot. COMPARISON: None. FINDINGS: Image quality: Excellent. 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 There is marrow edema involving 2nd middle and distal phalanges as well as 2nd metatarsal head and neck. No discrete fracture line is noted. Subtle erosive changes involving dorsal and lateral cortex of 2nd distal phalanx is seen. No other area of abnormal marrow signal. Soft tissues: There is significant soft tissue edema and swelling along dorsal aspect of midfoot and forefoot with marked soft tissue swelling surrounding 2nd toe distally and ulceration involving lateral aspect of distal 2nd toe. No discrete drainable abscess collection is seen. Extensor and flexor tendons are grossly intact. Lisfranc ligament is intact.. Subcutaneous tissues appear normal as well. No abnormal soft tissue enhancement. IMPRESSION: 1. Ulceration involving lateral aspect of distal 2nd toe with significant soft tissue edema and swelling surrounding 2nd toe extending along dorsal aspect of midfoot and forefoot consistent with cellulitis. No discrete drainable abscess collection. 2. Finding is concerning for osteomyelitis involving 2nd middle and distal phalanx. Marrow edema also noted involving 2nd metatarsal head and neck without discrete fracture line or gross bony erosive changes concerning for early osteomyelitis. Dictated by: Morteza Pardo M.D. on 09/11/2022 at 9:41 Approved by: Morteza Pardo M.D. on 09/11/2022 at 9:44
== END ==
PROVIDERS: Family Provider Family Medicine; PCP Internal Medicine; Referring Provider Surgery; Visit Provider Surgery
DX: E11.621 Type 2 diabetes mellitus with foot ulcer (principal); L97.519 Non-pressure chronic ulcer of other part of right foot with unspecified severity
CPT/HCPCS: 73720; A9579

== ENCOUNTER → 2022-09-11 11:56 | Outpatient (CLI) | payer MEDICARE, SELFPAY ==
--- NOTE | 2022-09-11 | OV.WND_ITS ---
Progress Note Details Patient Name: Jhonny Riggs Patient Number: [id number] Clinician: Cynthia Sol RN Patient Date of : 1945 Physician / Transition Teacher: Raman Fountain Patient SUBJECTIVE Chief Complaint This information was obtained from the patient, chart Diabetic ulcer on right second toe and new issue with left great toe nail. Allergies No Known Allergies HPI This information was obtained from the patient The following HPI elements were documented for the patient's wound: Location: R 2nd toe, L great toe Duration: 08/14/22, 09/09/22 The patient is a 76-year-old male with poorly controlled Type 2 diabetes who returns for followup of a diabetic ulcer of the right 2nd toe. The patient was started on dressing changes with Hydrofera blue. Cultures grew MRSA and doxycycline was prescribed however the patient has not yet filled the prescription and is continuing to take Levaquin. He came in today for a dressing change and reports developing some bloody drainage from the left great toe after wearing some work boots. He was noted to have developed an ulceration on the tip of the left great toe and the toenail was barely attached. He denies having any pain or discomfort nor has he had any fever or chills. The patient reports a good appetite. He reports that he is making a greater effort to control his blood sugars and has an appointment with his primary care physician soon. He is not using diabetic footwear. Past history is remarkable for diabetic ulcers involving the left 3rd toe and right hallux. ABIs were 0.93 on the left, 1.08 on the right. MRI of the right foot from September 10, 2022 revealed the followin. Ulceration involving lateral aspect of distal 2nd toe with significant soft tissue edema and swelling surrounding 2nd toe extending along dorsal aspect of midfoot and forefoot consistent with cellulitis. No discrete drainable abscess collection. 2. Finding is concerning for osteomyelitis involving 2nd middle and distal phalanx. Marrow edema also noted involving 2nd metatarsal head and neck without discrete fracture line or gross bony erosive changes concerning for early osteomyelitis. Previous workup: 08/31/22: culture grew MRSA 08/31/22: X-ray right foot middle phalanx of right 2nd toe 08/31/22: WBC 8.4, hemoglobin 14.8, HCT 43.4, electrolytes normal, GFR greater than 60, hemoglobin A1c 10.5 01/25/22: CBC and CMP without significant abnormality, GFR greater than 60 Medical History This information was obtained from the patient Patient has a medical history of: Diabetes Poliomyelitis (left side) Hypertension Surgical History This information was obtained from the patient, chart Patient has a surgical history of: knee replacement Arthroscopy Shoulder R side Additional Information Does patient have a history of Cancer? Yes? Complete all questions.: No OBJECTIVE Wound Assessment(s) Wound #3 Right Toe - Second is an acute Shrestha Grade 3 Diabetic Ulcer and has received a status of Not Healed. Initial wound encounter measurements are 0.4cm length x 0.7cm width x 0.6cm depth, with an area of 0.28 sq cm and a volume of 0.168 cubic cm. Bone and adipose are exposed. No tunneling has been noted. No sinus tract has been noted. No undermining has been noted. There is a moderate amount of serosanguineous drainage noted which has no odor. The patient reports a wound pain of level 0/10. The wound margin is attached. Wound bed has No epithelialization, No eschar, Yes slough, No granulation. The periwound skin exhibited: Edema, Moist, Maceration, Erythema. The temperature of the periwound skin is Warm. Local Pulse is Palpable. Wound #4 Left Hallux is an acute Shrestha Grade 1 Diabetic Ulcer and has received a status of Not Healed. Initial wound encounter measurements are 0.2cm length x 2cm width x 0.1cm depth, with an area of 0.4 sq cm and a volume of 0.04 cubic cm. Adipose is exposed. No tunneling has been noted. No sinus tract has been noted. No undermining has been noted. There is a large amount of sanguineous drainage noted which has no odor. The patient reports no wound pain due to the wound being insensate. The wound margin is unable to assess. Wound bed has No epithelialization, No eschar, Yes slough, Yes pink, firm granulation. The periwound skin exhibited: Edema, Moist, Maceration, Erythema. The temperature of the periwound skin is Warm. Local Pulse is Palpable. Vitals Height/Length: 73 in (185.42 cm), Weight: 230.2 lbs (104.64 kgs), BMI: 30.4, Temperature: 97.8 ?F (36.56 ?C), Pulse: 96 bpm, Respiratory Rate: 18 breaths/min, Blood Pressure: 154/66 mmHg, Pulse Oximetry: 96 %. Vital Signs Notes: Patient did not check glucose. Physical Exam Constitutional Vital signs reviewed and noted. Well developed, well nourished, and in no acute distress. Alert and oriented x3. Respiratory: Even respirations without use of accessory muscles. No intercoastal retractions noted. Even and non labored respiration. Integumentary (Hair, Skin) See wound assessment. Neurological: decreased lower extremity sensation. Additional Information The patient's potential to heal is: fair. 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 without evidence of necrosis (Encounter Diagnosis) E11.40 - Type 2 diabetes mellitus with diabetic neuropathy, unspecified (Encounter Diagnosis) L97.522 - Non-pressure chronic ulcer of other part of left foot with fat layer exposed (Encounter Diagnosis) M86.171 - Other acute osteomyelitis, right ankle and foot General Notes: diabetic ulcer dorsum distal right 2nd toe extending down to the distal phalanx with osteomyelitis Diabetic ulcer left great toe the following factors have been identified that may affect wound healing: Devitalized tissue Bioburden Infection Diabetes Neuropathy Goals: remove devitalized tissue Remove and prevent biofilm Treat infection Pressure offloading Manage comorbidities Plan: debridement, continue dressing changes with Hydrofera blue, start dressing changes with Hydrofera blue and Adaptic to left great toe, x-rays of left great toe ordered, the patient encouraged to start doxycycline 100 mg p.o. b.i.d., refer to Dr. Torres for recommendations regarding type and duration of antibiotic therapy. PROCEDURES Wound #3 Wound #3 (Diabetic Ulcer) is located on the right toe - second. A skin/subcutaneous tissue level surgical debridement with a total area debrided of 0.4 sq cm was performed by Raman Fountain MD. Subcutaneous was removed along with devitalized tissue: biofilm, exudate, and slough. The following instrument(s) were used: curette. No anesthetic was required due to loss of sensation. A time out was conducted prior to the start of the procedure. A moderate amount of bleeding was controlled with pressure. The procedure was tolerated well with a loss of sensation throughout and a loss of sensation following the procedure. Post Debridement Measurements: 0.5cm length x 0.8cm width x 0.6cm depth; with an area of 0.4 sq cm and a volume of 0.24 cubic cm; Wound #4 Wound #4 (Diabetic Ulcer) is located on the left hallux. A skin/subcutaneous tissue level surgical debridement with a total area debrided of 2.7 sq cm was performed by Raman Fountain MD. Subcutaneous was removed along with devitalized tissue: biofilm, exudate, slough, and toenail. The following instrument(s) were used: blade. No anesthetic was required due to loss of sensation. A time out was conducted prior to the start of the procedure. A moderate amount of bleeding was controlled with silver nitrate. The procedure was tolerated well with a loss of sensation throughout and a loss of sensation following the procedure. Post Debridement Measurements: 1.5cm length x 1.8cm width x 0.1cm depth; with an area of 2.7 sq cm and a volume of 0.27 cubic cm; Additional Information Muscle fascia or bone removed and sent to pathology?: No Muscle fascia or bone removed and sent to pathology?: No PLAN Wound Orders: Wound #3 Right Toe - Second Hygiene May shower with wound protected, using a cast protector or plastic bag and tape Cleanser Cleanse Wound with normal saline Dressings Primary dressing - Hydrofera blue classic foam, moistened with saline then wrung out. Cut to fill wound. Cover and secure with - Optifoam secured with tape. Change Dressing - Leave in place until next visit, unless bandage falls off or to control drainage. Off-Loading Keep weight off Use/Wear when walking - Sandal to avoid pressure against top of toe. Physician Review: Reviewed and evaluated labs. Discussed the Plan of Care @ bedside with - The patient Reviewed hospital records. I, as the physician, have reviewed the orders scribed by the center RN's and agree. Wound #4 Left Hallux Hygiene May shower with wound protected, using a cast protector or plastic bag and tape Cleanser Cleanse Wound with normal saline Dressings Primary dressing - Adaptic over wound base. Hydrofera blue classic foam, moistened with saline then wrung out. Cut to fill wound. Cover and secure with - Optifoam secured with tape. Change Dressing - Leave in place until next visit, unless bandage falls off or to control drainage. Off-Loading Keep weight off Use/Wear when walking - Post-op mari. Additional Orders: Other Instructions: - Please stop taking levaquin and start doxycycline. Instructions: - Refer to Infectious Disease for evaluation of MRI results suspecting osteomyelitis on right second toe. Follow-Up Appointments Return Appointment - . Return for Nurse visit - Sunday. Other information: If you develop fever, chills, increased pain, drainage, redness or swelling please call our office. If after hours, respond to the ER. Should you experience any significant changes in your wound(s) or have any questions regarding your home care instructions please contact the wound center @ [phone]. If after hours, contact your primary care physician or go to the hospital emergency room. Scribing Attestation I attest, as the nurse, that I scribed these orders for the physician. Radiology: X-ray, foot - Left foot, great toe. Evaluate for osteo. Please get done today. Laboratory: Culture and Sensitivity - Left great toe, swab sample taken in clinic today. We will call if any changes are required. Plan of Care: 01. ENSURE/ESTABLISH OPTIMAL BLOOD FLOW : - Complete lower extremity assessment - Perform non-invasive vascular testing (i.e. RONALD) and document findings. Consider repeating when wound healing <40% after 30 days of wound care. 02. ASSESS FOR/TREAT INFECTION : - Evaluate for signs and symptoms of infection and document findings. - Obtain culture and sensitivity (CandS) or tissue culture when infection is suspected. (NOTE:) Consider repeating when wound healing <40% after 30 days of wound care. 03. DEBRIDE WEEKLY OR MORE OFTEN PRN : - Evaluate patient in center weekly to assess wound bed and margins for need for debridement. - Debridement by any method to remove devitalized/necrotic tissue to promote healing and prevent further complications. Goal is to stimulate and/or maintain acute phase of wound healing by reducing bacterial burden and devitalized/non-viable tissue. 04. OPTIMIZE GLUCOSE CONTROL and NUTRITION : - Order/review pertinent labs to evaluate renal function, glucose control, and nutritional status. - Complete a nutrition risk assessment. 05. OFFLOADING PLAN : - Evaluate plan for offloading - Advise patient to offload the foot ulcer. (i.e. half shoe, surgical shoe, insert, custom shoe, felt and foam, cam walker, multipodus splint, total contact cast, bi-valve cast, posterior splint). - Provide education materials/discuss offloading strategies as appropriate. - Assess tolerance and compliance of offloading. 06. OPTIMIZE HOST FACTORS: - Assess and review patient history for wound etiology, co-morbid conditions, medication regime, and smoking history. - Assess lifestyle factors such as smoking, alcohol/drug abuse, eating habits/malnutrition and activity level. 07. DRESSING SELECTION : - Evaluate for dressing-related factors, such as availability, wear time, adaptability and use to better optimize wound healing and patient compliance. - Choose topical treatments and/or dressing based on wound type and appearance, periwound skin condition, wound size and depth, anatomic location, volume of exudate, edema in the lower extremities, and risk or presence of infection. 08. ADVANCED MODALITIES : - Evaluate for appropriateness of Hyperbaric Oxygen Therapy. - Set treatment goals according to patient and/or caregiver???s ability/ compliance. - Re-evaluate plan of care if no evidence of healing (40% in 4 weeks). 09. FALL PREVENTION : - Complete fall assessment. - Reviewed, not applicable 10. PAIN MANAGEMENT : - Reviewed, not applicable - Insensate. 11. MEASURABLE GOALS for Wound Healing and/or Hyperbaric Oxygen Therapy : - Decrease Inflammation - Decrease Wound Dimensions - Implement protocols to promote healing and impede further injury - To improve potential to heal 12. DURATION/FREQUENCY of Wound Care Visits : - 1x weekly for 30 days Electronic Signature(s) Signed By: Date: Raman Fountain MD 10/05/2022 13:02:18 (PT) 09/11/2022 3:15:04 PM Version Electronically Date: Signed By: Raman Fountain MD 09/11/2022 15:15:38 (PT) Entered By: Raman Fountain MD on 10/05/2022 13:01:55 (PT)
== END ==
PROVIDERS: Family Provider Family Medicine; PCP Internal Medicine; Referring Provider Internal Medicine; Visit Provider Surgery
DX: E11.621 Type 2 diabetes mellitus with foot ulcer (principal); L97.516 Non-pressure chronic ulcer of other part of right foot with bone involvement without evidence of necrosis; L97.522 Non-pressure chronic ulcer of other part of left foot with fat layer exposed; E11.40 Type 2 diabetes mellitus with diabetic neuropathy, unspecified; M86.171 Other acute osteomyelitis, right ankle and foot; R60.0 Localized edema
CPT/HCPCS: 11042; 87070; 87075; 87077; 87147; 87186; 87205; 99213

== ENCOUNTER → 2022-09-14 13:51 | Outpatient (CLI) | payer MEDICARE, SELFPAY | PROVIDERS: Family Provider Family Medicine; PCP Internal Medicine; Referring Provider Student in an Organized Health Care Education/Training Program; Visit Provider Surgery | DX: E11.621 Type 2 diabetes mellitus with foot ulcer (principal); L97.516 Non-pressure chronic ulcer of other part of right foot with bone involvement without evidence of necrosis; L97.522 Non-pressure chronic ulcer of other part of left foot with fat layer exposed; R60.0 Localized edema; L53.9 Erythematous condition, unspecified | CPT/HCPCS: 99213 ==

== ENCOUNTER → 2022-09-18 13:25 | Outpatient (CLI) | payer MEDICARE, SELFPAY | PROVIDERS: Family Provider Family Medicine; PCP Internal Medicine; Referring Provider Internal Medicine; Visit Provider Surgery | DX: L97.529 Non-pressure chronic ulcer of other part of left foot with unspecified severity (principal); E11.69 Type 2 diabetes mellitus with other specified complication; M86.9 Osteomyelitis, unspecified; E11.621 Type 2 diabetes mellitus with foot ulcer; L97.516 Non-pressure chronic ulcer of other part of right foot with bone involvement without evidence of necrosis; L97.522 Non-pressure chronic ulcer of other part of left foot with fat layer exposed; E11.40 Type 2 diabetes mellitus with diabetic neuropathy, unspecified; L84 Corns and callosities | CPT/HCPCS: 11042; 73630; 97597 ==

== ENCOUNTER → 2022-09-18 14:00 | Outpatient (CLI) | payer OTHER, SELFPAY ==
--- NOTE | 2022-09-18 14:01 | DI.RAD.S_ITS ---
PROCEDURE: XR FOOT LT MIN 3V INDICATIONS: ulcer on left great toe, eval for osteomyelitis TECHNIQUE: 3 views of the foot were acquired. COMPARISON: [facility], CR, XR FOOT RT MIN 3V, 08/31/2022, 16:04. FINDINGS: Bones: No fractures or dislocations. Osteoarthritic changes are noted throughout left foot. No gross bony erosive changes are noted. Well-defined plantar and dorsal calcaneal enthesophytes are seen. No suspicious bony lesions. Soft tissues: No tibiotalar joint effusion. Achilles tendon appears normal. IMPRESSION: Moderate left foot osteoarthritis. No acute fracture or dislocation. No radiographic evidence of osteomyelitis. Dictated by: Morteza Pardo M.D. on 09/18/2022 at 16:10 Approved by: Morteza Pardo M.D. on 09/18/2022 at 16:10
== END ==
PROVIDERS: Family Provider Family Medicine; PCP Internal Medicine; Referring Provider Surgery; Visit Provider Surgery
DX: E11.621 Type 2 diabetes mellitus with foot ulcer (principal); L97.529 Non-pressure chronic ulcer of other part of left foot with unspecified severity; E11.69 Type 2 diabetes mellitus with other specified complication; M86.9 Osteomyelitis, unspecified
CPT/HCPCS: 73630

== ENCOUNTER → 2022-09-21 13:59 | Outpatient (CLI) | payer OTHER, SELFPAY | PROVIDERS: Family Provider Family Medicine; PCP Internal Medicine; Referring Provider Student in an Organized Health Care Education/Training Program; Visit Provider Surgery | DX: E11.621 Type 2 diabetes mellitus with foot ulcer (principal); L97.516 Non-pressure chronic ulcer of other part of right foot with bone involvement without evidence of necrosis; L53.9 Erythematous condition, unspecified; L97.522 Non-pressure chronic ulcer of other part of left foot with fat layer exposed; L84 Corns and callosities; R60.0 Localized edema | CPT/HCPCS: 99213 ==

== ENCOUNTER → 2022-09-27 13:57 | Outpatient (CLI) | payer OTHER, SELFPAY | PROVIDERS: Family Provider Family Medicine; PCP Internal Medicine; Referring Provider Internal Medicine; Visit Provider Surgery | DX: E11.621 Type 2 diabetes mellitus with foot ulcer (principal); L97.512 Non-pressure chronic ulcer of other part of right foot with fat layer exposed; L84 Corns and callosities; E11.40 Type 2 diabetes mellitus with diabetic neuropathy, unspecified | CPT/HCPCS: 11042 ==

== ENCOUNTER → 2022-10-02 14:19 | Outpatient (CLI) | payer OTHER, SELFPAY | PROVIDERS: Family Provider Family Medicine; PCP Internal Medicine; Referring Provider Internal Medicine; Visit Provider Surgery | DX: E11.621 Type 2 diabetes mellitus with foot ulcer (principal); L97.512 Non-pressure chronic ulcer of other part of right foot with fat layer exposed; M86.171 Other acute osteomyelitis, right ankle and foot; L08.9 Local infection of the skin and subcutaneous tissue, unspecified; E11.40 Type 2 diabetes mellitus with diabetic neuropathy, unspecified; R60.0 Localized edema; L53.9 Erythematous condition, unspecified | CPT/HCPCS: 97597; 99213 ==

== ENCOUNTER → 2022-10-09 14:17 | Outpatient (CLI) | payer OTHER, SELFPAY | PROVIDERS: Family Provider Family Medicine; PCP Internal Medicine; Referring Provider Internal Medicine; Visit Provider Surgery | DX: E11.621 Type 2 diabetes mellitus with foot ulcer (principal); L97.516 Non-pressure chronic ulcer of other part of right foot with bone involvement without evidence of necrosis; E11.40 Type 2 diabetes mellitus with diabetic neuropathy, unspecified; M86.171 Other acute osteomyelitis, right ankle and foot | CPT/HCPCS: 97597; 99212 ==

== ENCOUNTER → 2022-10-23 11:36 | Outpatient (CLI) | payer OTHER, SELFPAY | PROVIDERS: Family Provider Family Medicine; PCP Internal Medicine; Referring Provider Internal Medicine; Visit Provider Surgery | DX: E11.621 Type 2 diabetes mellitus with foot ulcer (principal); L97.512 Non-pressure chronic ulcer of other part of right foot with fat layer exposed; E11.40 Type 2 diabetes mellitus with diabetic neuropathy, unspecified; M86.171 Other acute osteomyelitis, right ankle and foot; R60.0 Localized edema; L53.9 Erythematous condition, unspecified | CPT/HCPCS: 11042 ==

== ENCOUNTER → 2022-11-06 12:58 | Outpatient (CLI) | payer OTHER, SELFPAY | PROVIDERS: Family Provider Family Medicine; PCP Internal Medicine; Referring Provider Internal Medicine; Visit Provider Surgery | DX: Z86.31 Personal history of diabetic foot ulcer (principal); E11.40 Type 2 diabetes mellitus with diabetic neuropathy, unspecified | CPT/HCPCS: 99212; 99213 ==

== ENCOUNTER → 2022-11-13 15:00 | Outpatient (CLI) | payer OTHER, SELFPAY | PROVIDERS: Family Provider Family Medicine; PCP Internal Medicine; Referring Provider Internal Medicine; Visit Provider Surgery | DX: L97.516 Non-pressure chronic ulcer of other part of right foot with bone involvement without evidence of necrosis (principal); E11.621 Type 2 diabetes mellitus with foot ulcer | CPT/HCPCS: 99211; 99213 ==